=== PATIENT | female | born 1980 | race Caucasian/White ===

== ENCOUNTER 2018-08-24 12:30 | Emergency (ER) | payer OTHER ==
[2018-08-24 12:41] VITALS: BP 127/70; PULSE 80; TEMP 97.9; BMI 29.0
--- NOTE | 2018-08-24 13:21 | PDOC ---
History of Present Illness - General Chief Complaint: Eye Problem Stated Complaint: RT EYE PAIN Time Seen by Provider: 08/24/18 13:08 - History of Present Illness Initial Comments: 08/24/18 13:18 38-year-old female without comorbidities presents for evaluation of right eye irritation times one day without systemic symptoms or changes in vision. She complains of tearing when her eyes open. Past History - Past Medical History Allergies/Adverse Reactions: Allergies Allergy/AdvReac Type Severity Reaction Status Date / Time No Known Allergies Allergy Verified 08/24/18 12:38 Home Medications: Ambulatory Orders Tobramycin 0.3% Ophth Soln [Tobrex Ophthalmic Solution -] 1 drop OD Q4HWA 5 Days #1 bottle 08/24/18 COPD: No - Suicide/Smoking/Psychosocial Hx Smoking History: Current every day smoker Number of Cigarettes Smoked Daily: 10 Information on smoking cessation initiated: No Review of Systems - Review of Systems Constitutional: No: Fever HEENTM: Yes: Tearing. No: Eye Pain, Blurred Vision, Recent change in vision, Double Vision *Physical Exam - Vital Signs Last Vital Signs Temp Pulse Resp BP Pulse Ox 97.9 F 80 18 127/70 97 08/24/18 12:39 08/24/18 12:39 08/24/18 12:39 08/24/18 12:39 08/24/18 12:39 - Physical Exam Comments: 08/24/18 13:21 HEAD: NC/AT EYES: Conjuntiva clear in L eye, R eye is injected, floricine stain shows a small corneal abrasion in the middle of the eye sub cm MS: Full ROM in all joints without edema NEUROLOGIC: No gross sensory or motor deficits, NVID SKIN: Normal color and temperature no lesions or rashes Moderate Sedation - Procedure Monitoring Vital Signs: Procedure Monitoring Vital Signs Temperature 97.9 F 08/24/18 12:39 Pulse Rate 80 08/24/18 12:39 Respiratory Rate 18 08/24/18 12:39 Blood Pressure 127/70 08/24/18 12:39 O2 Sat by Pulse Oximetry (%) 97 08/24/18 12:39 Medical Decision Making - Medical Decision Making 08/24/18 13:23 Tobramycin for corneal abrasion follow-up with ophthalmology *DC/Admit/Observation/Transfer Diagnosis at time of Disposition: Corneal abrasion - Discharge Dispostion Disposition: HOME Condition at time of disposition: Stable Decision to Admit order: No - Prescriptions Prescriptions: Tobramycin 0.3% Ophth Soln [Tobrex Ophthalmic Solution -] 1 drop OD Q4HWA 5 Days #1 bottle - Referrals Referrals: Avel Concepcion [Non Staff, Medical] - Farzad Daly [Non Staff, Medical] - Jeb Saleh [Staff Physician] - Monica Garcia MD [Staff Physician] - Mesfin Matos MD [Non Staff, Medical] - Chencho Suárez MD [Staff Physician] - Huseyin Zuluaga MD [Non Staff, Medical] - Kieran nAderson [Non Staff, Medical] - Anam Andrade [Non Staff, Medical] - Nestor Osorio MD [Non Staff, Medical] - Flor Ye MD [Staff Physician] - Jesus Salgado MD, MD [Non Staff, Medical] - Foster Altman MD [Non Staff, Medical] - Jo Bill MD [Non Staff, Medical] - - Patient Instructions Printed Discharge Instructions: DI for Corneal Abrasion, Corneal Abrasion Additional Instructions: Please use the antibiotics as directed. Return to the emergency room for worsening symptoms. Follow-up with ophthalmology in one to 2 days for further evaluation and treatment options. I've given you list of local ophthalmologists. - Post Discharge Activity
== END 2018-08-24 13:26 | disposition home or self-care (01) ==
LOC: JERFT 12:30
DX: S05.01XA Injury of conjunctiva and corneal abrasion without foreign body, right eye, initial encounter (principal); X58.XXXA Exposure to other specified factors, initial encounter; Y93.89 Activity, other specified; Y92.89 Other specified places as the place of occurrence of the external cause; Y99.8 Other external cause status
CPT/HCPCS: 99281-25

== ENCOUNTER 2019-06-08 06:30 | Emergency (ER) | payer OTHER ==
[2019-06-08 06:51] VITALS: BMI 30.4
[2019-06-08] MEDS ORDERED: SODIUM CHLORIDE 0.9% 500 ML INFUS.BAG IV ONE (07:30)
[2019-06-08] MEDS ORDERED: ACETAMINOPHEN 1000 MG/100 ML VIAL (NON FORMULARY) IVPB ONE ×2 (07:30→12:06)
[2019-06-08] MEDS ORDERED: ONDANSETRON 4 MG/2 ML VIAL IVPUSH ONE (07:30)
--- NOTE | 2019-06-08 07:54 | PDOC ---
Attending Attestation - Resident Resident Name: Adriana Romero - ED Attending Attestation I have performed the following: I have examined & evaluated the patient, The case was reviewed & discussed with the resident, I agree w/resident's findings & plan, Exceptions are as noted - HPI HPI: 06/08/19 10:14 Agree with resident HPI - Physicial Exam PE: 06/08/19 10:14 GENERAL: Awake, alert, and fully oriented, in no acute distress but appears uncomfortable EYES: PERRLA, EOMI, sclera anicteric, conjunctiva clear ENT: Oropharynx clear without exudates. Moist mucosa. NECK: Normal ROM, supple, no lymphadenopathy, JVD, or masses LUNGS: Breath sounds equal, clear to auscultation bilaterally. No wheezes, and no crackles HEART: Regular rate and rhythm, normal S1 and S2, no murmurs, rubs or gallops ABDOMEN: Soft, +midline abd ttp, normoactive bowel sounds. No guarding, no rebound. No masses. No CVAT PELVIC: per Dr. Romero's note EXTREMITIES: Normal range of motion, no edema. No cords, erythema, or tenderness NEUROLOGICAL: Normal speech, cranial nerves intact, equal strength and sensation b/l SKIN: Warm, Dry, normal turgor, no rashes or lesions noted. - Medical Decision Making 06/08/19 10:16 39yo F with no PMH or PSH presents to the ED with 1 day of lower abd pain a/w vomiting and diarrhea Pelvic exam unremarkable with no bleeding, discharge, CMT, ttp No rectal bleeding on exam Ddx: UTI vs colitis vs enteritis vs diverticulitis vs appy +leukocytosis to 15, remaining labs/UA wnl. UPT neg Feels mildly improved with IV tylenol Persistently tender in suprapubic area, also mildly in LLQ -> will obtain CTAP for further evaluation and reassess 06/08/19 12:11 CTAP with colitis. Plan to treat with flagyl and cipro. Pt to f/u within 2-3 days with PMD. She is non toxic appearing, tolerating PO I discussed the physical exam findings, ancillary test results and final diagnoses with the patient. I answered all of the patient's questions. The patient was satisfied with the care received and felt comfortable with the discharge plan and treatment plan. The patient will call their primary care physician within 24 hours to arrange follow-up and will return to the Emergency Department with any new, persistent or worsening symptoms.
--- NOTE | 2019-06-08 07:59 | PDOC ---
History of Present Illness - General Chief Complaint: Vomiting/Diarrhea Stated Complaint: ABD PAIN Time Seen by Provider: 06/08/19 07:21 - History of Present Illness Initial Comments: Gabriela Rendon is a 39yo woman with no past medical history who presents with one day of vomiting, diarrhea, and lower abdominal pain. She states that the symptoms started yesterday. Initially, she was vomiting clear fluid, though the vomiting has since mostly resolved, which she attributes to not eating or drinking anything recently. She also reports watery diarrhea "every time [she] gets up" along with a small amount of red blood on the tissue after the last few episodes. She states that at this point, she has lower abdominal and now low back pain along with the diarrhea. Ms Artis denies any dysuria, hematuria, vaginal bleeding, vaginal discharge , upper abdominal pain, recent travel, sick contacts, change in diet, fever/ chills, or respiratory symptoms. She reports that her LMP was about one week ago , and she does not believe she could be . Past History - Past Medical History Allergies/Adverse Reactions: Allergies Allergy/AdvReac Type Severity Reaction Status Date / Time No Known Allergies Allergy Verified 06/08/19 06:53 Home Medications: Ambulatory Orders Ciprofloxacin [Cipro -] 500 mg PO Q12H 7 Days #14 tablet 06/08/19 metroNIDAZOLE [Metronidazole] 500 mg PO Q8H 7 Days #21 tablet 06/08/19 COPD: No Other medical history: Pt denies - Psycho Social/Smoking Cessation Hx Smoking History: Current every day smoker Number of Cigarettes Smoked Daily: 10 Information on smoking cessation initiated: No Hx Alcohol Use: No Drug/Substance Use Hx: No Review of Systems - Review of Systems Comments:: General: No fevers, no chills, no weight or appetite change, no malaise HEENT: No changes in vision, no changes in hearing, no congestion, no sore throat CV: No chest pain, no palpitations, no LE edema Pulm: No SOB, no cough, no wheezing GI: See HPI : No frequency, no urgency, no dysuria Musc: No back pain, no joint swelling, no recent injury Skin: No rash, no lesions, no erythema Endo: No excessive thirst, no heat/cold intolerance Heme: No unusual bruising or bleeding, no swollen glands Neuro: No syncope, no numbness/tingling, no focal weakness Vasc: No claudication Psych: No recent change in mood, no SI or HI *Physical Exam - Vital Signs Last Vital Signs Temp Pulse Resp BP Pulse Ox 97.8 F 77 18 134/70 98 06/08/19 06:48 06/08/19 06:48 06/08/19 06:48 06/08/19 06:48 06/08/19 06:48 - Physical Exam General: Uncomfortable but in no acute distress HEENT: PERRL, EOMI, MMM, voice normal, normal neck ROM Cards: RRR, no murmur appreciated Pulm: Comfortable on room air, clear to auscultation bilaterally Abd: Soft, nondistended. TTP over lower abdomen, L>R. No rigidity, no guarding. : No CVA tenderness Ext: Atraumatic. No LE edema. ROM intact. WWP Skin: Normal color, no rashes or lesions Neuro: A&Ox3, CN grossly intact, normal speech, motor/sensory grossly intact and symmetric Psych: Mood appropriate to situation ED Treatment Course - LABORATORY CBC & Chemistry Diagram: 06/08/19 08:20 06/08/19 08:20 Medical Decision Making - Medical Decision Making 06/08/19 07:37 Gabriela Rendon is a 39yo woman with no past medical history who presents with one day of vomiting, diarrhea, and lower abdominal pain. - Most likely infectious diarrhea, gastroenteritis. Possible UTI, no CVA tenderness suggesting pyelo. - Denies any vaginal complaints. May need pelvic exam regardless as pt has lower abdominal pain - Small amount of bright red rectal bleeding likely secondary to diarrhea, will check for fissure or hemorrhoids - CBC, CMP, UA, UCx, urine preg - IVF, zofran, acetaminophen 06/08/19 08:03 - Examined by Dr Hackett. Pt reports taking activated charcoal at home for "detox " every other day. May be the cause of her symptoms 06/08/19 09:48 - Pelvic exam completed. Normal external genitalia, no lesions, no bleeding or discharge. No CMT, no adnexal tenderness, os closed - External rectal exam without bleeding, fissure, hemorroids, or other abnormalities - Labs reviewed. Notable for leukocytosis to 15. No other abnormalities appreciated - Pt feeling better, but reports increased discomfort after pelvic. No vomiting or diarrhea while in ED. Will give toradol if test negative, still pending 06/08/19 10:20 - Reexamined pt. Still with LLQ tenderness - Given relatively benign workup, will order CT abd/pelvis with IV contrast for evaluation. Possible diverticulitis given location of pain, report of rectal bleeding, diarrhea 06/08/19 12:04 - CT reviewed in ED. Stranding and bowel wall thickening on right side. Radiology report pending - Pt states she is still in pain, but requesting to leave hospital. Advised to wait for results 06/08/19 12:39 - CT w/ ascending and transverse colitis - Updated pt. Will give antiobitics for one week and GI follow up. Discussed pain control at home with acetaminophen and ibuprofen, recommending liquid and soft diet until symptoms resolve. Discussed with Dr Terry Romero PGY2 Discharge - Discharge Information Problems reviewed: Yes Clinical Impression/Diagnosis: Colitis Condition: Stable Disposition: HOME - Admission No - Additional Discharge Information Prescriptions: Ciprofloxacin [Cipro -] 500 mg PO Q12H 7 Days #14 tablet metroNIDAZOLE [Metronidazole] 500 mg PO Q8H 7 Days #21 tablet - Follow up/Referral Referrals: Adithya Macias MD [Staff Physician] - - Patient Discharge Instructions Patient Printed Discharge Instructions: DI for Colitis Additional Instructions: Discharge Instructions: You were seen in the emergency department for diarrhea and abdominal pain. You were found to have a colon infection called colitis. You have been prescribed antibiotics for your infection. Home Care and Follow Up; - You have been prescribed two antibiotics, ciprofloxacin and metronidazole. - Metronidazole should be taken ever 8 hours for one week (e.g. 7am, 3pm, 11pm) . Do not drink alcohol with this antibiotic. - Ciprofloxacin should be taken every 12 hours for one week (e.g. 7am and 8pm) - You may use over the counter medications as needed for pain at home. 650- 1000mg acetaminophen (Tylenol) or 600mg ibuprofen (Motrin or Advil) can be used every 6-8 hours. If needed for continued pain, these medications may be alternated every 3-4 hours. For example, if you take ibuprofen at 9am, you may take acetaminophen at noon, ibuprofen at 3pm, etc. - You may want to stick to a liquid and soft food diet until your symptoms improve. It is OK if you do not eat as long as you are staying hydrated - Avoid dairy products, spicy or greasy foods, alcohol and caffeine. - You have been given contact information for Dr Macias, a GI specialist. Schedule an appointment with GI within the next 1-2 weeks. - Seek immediate care for worsening symptoms, severe pain, fever to 100.5F or higher, dehydration, or any other medical emergency. - Post Discharge Activity Work/Back to School Note: Back to Work
[2019-06-08] MEDS ORDERED: ACETAMINOPHEN INJECTION 100 ML IVPB ONE ×2 (08:10→12:21)
[2019-06-08] MEDS ORDERED: ONDANSETRON 4 MG/2 ML VIAL ONE (08:11)
[2019-06-08 08:43] LABS: BASO % 0.7 % (0-2.0); EOS % 1.6 % (0-4.5); HEMATOCRIT 44.6 % (32.4-45.2); HEMOGLOBIN 14.9 GM/dL (10.7-15.3); LYMPH % 18.8 % (8-40); MCH 32.1 pg (25.7-33.7); MCHC 33.5 g/dl (32.0-36.0); MEAN CELL VOLUME 96.1 fl (80-96); MEAN PLT VOLUME 9.5 fl (7.5-11.1); MONO % 6.3 % (3.8-10.2); NEUT % 72.6 % (42.8-82.8); PLATELET COUNT 290 K/MM3 (134-434); RBC 4.64 M/mm3 (3.60-5.2); RDW 14.2 % (11.6-15.6); WHITE BLOOD COUNT 15.4 K/mm3 (4.0-10.0)
[2019-06-08 08:52] LABS: EPI CELLS 5.1 /HPF (0-5/HPF); HYALINE CASTS 7 /lpf (0-8); PH,URINE 5.5 (5.0-8.0); URINE APPEARANCE CLEAR; URINE BACTERIA 24.9 /hpf (NEGATIVE); URINE BILIRUBIN NEGATIVE (NEGATIVE); URINE COLOR DK YELLOW; URINE GLUCOSE (UA) NEGATIVE (NEGATIVE); URINE KETONE TRACE (NEGATIVE); URINE LEUK ESTERASE NEGATIVE (NEGATIVE); URINE NITRITE NEGATIVE (NEGATIVE); URINE PROTEIN NEGATIVE (NEGATIVE); URINE UROBILINOGEN 0.2 mg/dL (0.2-1.0); URINE WBC 2 /hpf (0-5)
[2019-06-08 09:13] LABS: ALBUMIN 3.3 g/dl (3.4-5.0); BILIRUBIN,TOTAL 0.4 mg/dL (0.2-1); BLOOD UREA NITROGEN 9.3 mg/dL (7-18); CALCIUM 9.1 mg/dL (8.5-10.1); CREATININE 0.7 mg/dL (0.55-1.3); POTASSIUM 3.9 mmol/L (3.5-5.1); TOT PROT 6.5 g/dl (6.4-8.2)
[2019-06-08 09:37] LABS: URINE RBC 5 /hpf (0-4)
[2019-06-08] MEDS ORDERED: KETOROLAC TROMETHAMINE 30 MG/1 ML VIAL IVPUSH ONE (12:25)
[2019-06-08] MEDS ORDERED: KETOROLAC TROMETHAMINE 30 MG/1 ML VIAL ONE (12:29)
[2019-06-08 12:42] VITALS: BP 137/91; PULSE 70; TEMP 98.2
== END 2019-06-08 13:20 | disposition home or self-care (01) ==
LOC: JER 06:30
PROC: 3E033NZ Introduction of Analgesics, Hypnotics, Sedatives into Peripheral Vein, Percutaneous Approach (ICD-10-PCS; principal; 2019-06-08)
PROC: 3E0333Z Introduction of Anti-inflammatory into Peripheral Vein, Percutaneous Approach (ICD-10-PCS; 2019-06-08)
PROC: 3E033GC Introduction of Other Therapeutic Substance into Peripheral Vein, Percutaneous Approach (ICD-10-PCS; 2019-06-08)
PROC: 3E033NZ Introduction of Analgesics, Hypnotics, Sedatives into Peripheral Vein, Percutaneous Approach (ICD-10-PCS; 2019-06-08)
DX: K52.9 Noninfective gastroenteritis and colitis, unspecified (principal)
CPT/HCPCS: 36415; 74177-TC; 80053; 81003; 83690; 84703; 85025; 87086; 99283-25; J0131

== ENCOUNTER 2020-12-01 18:18 | Emergency (ER) | payer OTHER ==
[2020-12-01 18:34] VITALS: BP 118/69; PULSE 76; TEMP 98; BMI 30.4
[2020-12-01] MEDS ORDERED: KETOROLAC TROMETHAMINE 30 MG/1 ML VIAL IM ONE (19:26)
[2020-12-01] MEDS ORDERED: KETOROLAC TROMETHAMINE 30 MG/1 ML VIAL ONE (19:39)
== END 2020-12-01 21:06 | disposition home or self-care (01) ==
LOC: JERFT 18:18
PROC: 3E0233Z Introduction of Anti-inflammatory into Muscle, Percutaneous Approach (ICD-10-PCS; principal; 2020-12-01)
DX: M79.10 Myalgia, unspecified site (principal)
CPT/HCPCS: 72100-TC-FY; 73130-TC-LT-FY; 73610-TC-LT-FY; 99284-25

== ENCOUNTER 2022-03-13 04:12 | Day surgery (SDC) | payer OTHER ==
[2022-03-09 13:08] VITALS: BMI 35.9
[2022-03-13] MEDS ORDERED: DEXAMETHASONE SOD PHOSPHATE 4 MG/1 ML VIAL ONE (11:15)
[2022-03-13] MEDS ORDERED: KETOROLAC TROMETHAMINE 30 MG/1 ML VIAL ONE (11:15)
[2022-03-13] MEDS ORDERED: LIDOCAINE HCL 2% 100 MG/5 ML DISP.SYRIN ONE (11:15)
[2022-03-13] MEDS ORDERED: ONDANSETRON 4 MG/2 ML VIAL ONE (11:15)
[2022-03-13] MEDS ORDERED: MIDAZOLAM HCL 2 MG/2 ML SINGLE DOSE VIAL ONE ×2 (11:15→11:40)
[2022-03-13] MEDS ORDERED: PROPOFOL 40 ML ONE (11:15)
[2022-03-13] MEDS ORDERED: BUPIVACAINE HCL/PF 0.5% (5MG/ML) 10 ML VIAL ONE (11:27)
[2022-03-13] MEDS ORDERED: ceFAZolin SODIUM 1 GM VIAL IVPB ONE (12:15)
[2022-03-13] MEDS ORDERED: ONDANSETRON 4 MG/2 ML VIAL IVPUSH PRN (12:58)
[2022-03-13] MEDS ORDERED: oxyCODONE HCL 5 MG TABLET PO PRN ×2 (12:58)
[2022-03-13] MEDS ORDERED: LACTATED RINGERS SOLUTION 1,000 ML IV SCH (13:00)
[2022-03-13 14:41] VITALS: RESP 20; TEMP 97.8
[2022-03-13 14:45] VITALS: BP 142/68; PULSE 80
== END 2022-03-13 14:46 | disposition home or self-care (01) ==
LOC: JASU-SURG 04:12
PROVIDERS: ATTEND Obstetrics & Gynecology
PROC: 0UB98ZZ Excision of Uterus, Via Natural or Artificial Opening Endoscopic (ICD-10-PCS; principal; 2022-03-13 12:00)
PROC: 0UDB8ZZ Extraction of Endometrium, Via Natural or Artificial Opening Endoscopic (ICD-10-PCS; 2022-03-13 12:00)
DX: D25.0 Submucous leiomyoma of uterus (principal); N84.0 Polyp of corpus uteri
CPT/HCPCS: 81025; 88305-TC; 94760

== ENCOUNTER 2023-06-19 12:02 | Emergency (ER) | payer OTHER ==
[2023-06-19 12:21] VITALS: RESP 20; BMI 32.6
[2023-06-19] MEDS ORDERED: LACTATED RINGERS SOLUTION 1000 ML INFUS.BAG IV ONE (12:33)
[2023-06-19] MEDS: ALBUTEROL SO4 2.5/IPRATROPIUM 0.5 INH SOL 3 ML VIAL.NEB. NEB SCH ×2 (12:55→13:32)
[2023-06-19] MEDS ORDERED: DEXAMETHASONE SOD PHOSPHATE 10 MG/1 ML VIAL IVPUSH ONE (13:06)
[2023-06-19] MEDS ORDERED: DEXAMETHASONE SOD PHOSPHATE 10 MG/1 ML VIAL ONE (13:27)
[2023-06-19 13:34] LABS: BASO % 0.4 % (0-2.0); EOS % 0.7 % (0-4.5); HEMATOCRIT 43.6 % (32.4-45.2); HEMOGLOBIN 14.3 GM/dL (10.7-15.3); LYMPH % 7.4 % (8-40); MCH 29.1 pg (25.7-33.7); MCHC 32.8 g/dl (32.0-36.0); MEAN CELL VOLUME 88.7 fl (80-96); MEAN PLT VOLUME 9.7 fl (7.5-11.1); MONO % 7.7 % (3.8-10.2); NEUT % 83.8 % (42.8-82.8); PLATELET COUNT 284 10^3/uL (134-434); RBC 4.91 M/mm3 (3.60-5.2); RDW 16.8 % (11.6-15.6); WHITE BLOOD COUNT 17.1 K/mm3 (4.0-10.0)
[2023-06-19 13:44] LABS: INR 1.15 (0.83-1.09); PROTHROMBIN TIME (PATIENT) 13.3 SEC (9.7-13.0)
[2023-06-19 13:47] LABS: ACTIVATED PTT 31.7 SECONDS (25.2-36.5)
[2023-06-19 13:54] LABS: POTASSIUM 5.2 mmol/L (3.5-5.1)
[2023-06-19 13:56] LABS: ALBUMIN 3.1 g/dl (3.4-5.0); CALCIUM 8.9 mg/dL (8.5-10.1)
[2023-06-19 13:59] LABS: CREATININE 0.9 mg/dL (0.55-1.3)
[2023-06-19 14:01] LABS: BILIRUBIN,TOTAL 0.6 mg/dL (0.2-1); TOT PROT 7.2 g/dl (6.4-8.2)
[2023-06-19 15:59] VITALS: BP 129/78; PULSE 103; TEMP 99.7
== END 2023-06-19 16:35 | disposition home or self-care (01) ==
LOC: JER 12:02
PROC: 3E033GC Introduction of Other Therapeutic Substance into Peripheral Vein, Percutaneous Approach (ICD-10-PCS; principal; 2023-06-19)
PROC: 3E0F7GC Introduction of Other Therapeutic Substance into Respiratory Tract, Via Natural or Artificial Opening (ICD-10-PCS; 2023-06-19)
DX: J06.9 Acute upper respiratory infection, unspecified (principal); J10.1 Influenza due to other identified influenza virus with other respiratory manifestations; R05.9 Cough, unspecified; R06.02 Shortness of breath; R09.02 Hypoxemia; R07.89 Other chest pain; R06.2 Wheezing; Z20.822 Contact with and (suspected) exposure to COVID-19
CPT/HCPCS: 0241U-QW; 36415; 71046-TC-FY; 80053; 84484; 84703; 85025; 85610; 85730; 93005; 93010; 99285-25; J1100

== ENCOUNTER 2023-10-19 21:57 | Emergency (ER) | payer OTHER ==
[2023-10-19 22:03] VITALS: BP 143/84; PULSE 92; RESP 18; TEMP 98.3; BMI 34.9
[2023-10-19 23:04] LABS: BASO % 0.9 % (0-2.0); EOS % 1.2 % (0-4.5); HEMATOCRIT 40.9 % (32.4-45.2); HEMOGLOBIN 13.8 GM/dL (10.7-15.3); LYMPH % 30.2 % (8-40); MCH 28.9 pg (25.7-33.7); MCHC 33.7 g/dl (32.0-36.0); MEAN CELL VOLUME 85.7 fl (80-96); MEAN PLT VOLUME 9.6 fl (7.5-11.1); MONO % 5.6 % (3.8-10.2); NEUT % 62.1 % (42.8-82.8); PLATELET COUNT 302 10^3/uL (134-434); RBC 4.77 M/mm3 (3.60-5.2); RDW 17.6 % (11.6-15.6); WHITE BLOOD COUNT 16.7 K/mm3 (4.0-10.0)
[2023-10-19 23:21] LABS: POTASSIUM 3.8 mmol/L (3.5-5.1)
[2023-10-19 23:23] LABS: CALCIUM 8.7 mg/dL (8.5-10.1)
[2023-10-19 23:24] LABS: ALBUMIN 3.6 g/dl (3.4-5.0)
[2023-10-19] MEDS ORDERED: PIPERACILLIN/TAZOB 3.375 GM 3.375 GM in DEXTROSE 5%-WATER - 50 ML IVPB ONE (23:26)
[2023-10-19 23:27] LABS: CREATININE 0.9 mg/dL (0.55-1.3)
[2023-10-19 23:29] LABS: BILIRUBIN,TOTAL 0.2 mg/dL (0.2-1)
== END 2023-10-20 00:53 | disposition left against medical advice (07) ==
LOC: JER 21:57 → JERFT 21:57 → JER 10-20 00:53
DX: S91.352A Open bite, left foot, initial encounter (principal); M79.672 Pain in left foot; W55.01XA Bitten by cat, initial encounter
CPT/HCPCS: 36415; 73630-TC-LT; 80053; 84703; 85025; 85651; 86140; 99284-25

== ENCOUNTER 2023-10-20 02:11 | Observation (INO) | payer OTHER ==
[2023-10-20 02:21] VITALS: RESP 18; BMI 34.9
[2023-10-20] MEDS ORDERED: PIPERACILLIN/TAZOB 3.375 GM 3.375 GM/50 ML BAG IVPB ONE (04:10)
[2023-10-20] MEDS: PIPERACILLIN/TAZOB 3.375 GM 3.375 GM in DEXTROSE 5%-WATER - 50 ML IVPB ONE (04:10)
[2023-10-20] MEDS ORDERED: ACETAMINOPHEN INJECTION 100 ML IVPB ONE (04:11)
[2023-10-20] MEDS: ACETAMINOPHEN 1000 MG/100 ML BAG IVPB ONE (05:00)
[2023-10-20 06:37] LABS: BASO % 0.9 % (0-2.0); EOS % 1.9 % (0-4.5); HEMATOCRIT 38.3 % (32.4-45.2); HEMOGLOBIN 12.5 GM/dL (10.7-15.3); LYMPH % 33.9 % (8-40); MCH 28.5 pg (25.7-33.7); MCHC 32.6 g/dl (32.0-36.0); MEAN CELL VOLUME 87.3 fl (80-96); MEAN PLT VOLUME 9.6 fl (7.5-11.1); MONO % 6.8 % (3.8-10.2); NEUT % 56.5 % (42.8-82.8); PLATELET COUNT 277 10^3/uL (134-434); RBC 4.39 M/mm3 (3.60-5.2); RDW 17.8 % (11.6-15.6); WHITE BLOOD COUNT 12.4 K/mm3 (4.0-10.0)
[2023-10-20 06:47] LABS: POTASSIUM 3.9 mmol/L (3.5-5.1)
[2023-10-20 06:50] LABS: ALBUMIN 3.2 g/dl (3.4-5.0); BLOOD UREA NITROGEN 14.2 mg/dL (7-18); CALCIUM 8.8 mg/dL (8.5-10.1)
[2023-10-20 06:53] LABS: CREATININE 0.9 mg/dL (0.55-1.3); PHOSPHOROUS 3.5 mg/dL (2.5-4.9)
[2023-10-20 06:55] LABS: BILIRUBIN,TOTAL 0.3 mg/dL (0.2-1); TOT PROT 6.4 g/dl (6.4-8.2)
[2023-10-20] MEDS: ENOXAPARIN NA (PORCINE) 40 MG/0.4 ML DISP.SYRIN SQ SCH (09:10)
[2023-10-20] MEDS ORDERED: ACETAMINOPHEN 325 MG TABLET (FP) PO PRN (09:59)
[2023-10-21 08:59] LABS: BASO % 1.3 % (0-2.0); EOS % 3.5 % (0-4.5); HEMATOCRIT 39.5 % (32.4-45.2); MCH 28.6 pg (25.7-33.7); MCHC 32.8 g/dl (32.0-36.0); MEAN PLT VOLUME 9.6 fl (7.5-11.1); MONO % 7.3 % (3.8-10.2); NEUT % 44.9 % (42.8-82.8); PLATELET COUNT 282 10^3/uL (134-434); RBC 4.54 M/mm3 (3.60-5.2); RDW 17.3 % (11.6-15.6); WHITE BLOOD COUNT 8.3 K/mm3 (4.0-10.0)
[2023-10-21 09:23] LABS: POTASSIUM 4.4 mmol/L (3.5-5.1)
[2023-10-21 09:27] LABS: ALBUMIN 2.9 g/dl (3.4-5.0); BLOOD UREA NITROGEN 13.6 mg/dL (7-18); CALCIUM 8.4 mg/dL (8.5-10.1)
[2023-10-21 09:30] LABS: CREATININE 0.6 mg/dL (0.55-1.3)
[2023-10-21 09:32] LABS: BILIRUBIN,TOTAL 0.3 mg/dL (0.2-1)
[2023-10-22 08:35] LABS: HEMATOCRIT 40.6 % (32.4-45.2); HEMOGLOBIN 13.6 GM/dL (10.7-15.3); LYMPH % 40.5 % (8-40); MCH 28.9 pg (25.7-33.7); MCHC 33.3 g/dl (32.0-36.0); MEAN CELL VOLUME 86.8 fl (80-96); MEAN PLT VOLUME 9.6 fl (7.5-11.1); MONO % 7.5 % (3.8-10.2); PLATELET COUNT 276 10^3/uL (134-434); RBC 4.68 M/mm3 (3.60-5.2); WHITE BLOOD COUNT 9.5 K/mm3 (4.0-10.0)
[2023-10-22 11:25] VITALS: BP 150/87; PULSE 61; TEMP 98.1
[2023-10-22] MEDS ORDERED: IBUPROFEN 600 MG TABLET (FP) PO PRN ×2 (11:41→18:00)
[2023-10-22] MEDS: IBUPROFEN 600 MG TABLET (FP) PO ONE (14:00)
== END 2023-10-22 18:18 | disposition home or self-care (01) ==
LOC: JER 02:11 → JERBED 03:02 → J6S 06:53
PROVIDERS: ADMIT Internal Medicine; ATTEND Internal Medicine
PROC: 3E033NZ Introduction of Analgesics, Hypnotics, Sedatives into Peripheral Vein, Percutaneous Approach (ICD-10-PCS; principal; 2023-10-20)
DX: S91.332A Puncture wound without foreign body, left foot, initial encounter (principal); W55.01XA Bitten by cat, initial encounter; Y93.89 Activity, other specified; Y92.009 Unspecified place in unspecified non-institutional (private) residence as the place of occurrence of the external cause; L73.2 Hidradenitis suppurativa; R73.03 Prediabetes
CPT/HCPCS: 36415; 73723-LT; 80053; 83735; 84100; 85025; 86140; 93005; 93010; 97116-GP; 97161-GP; 99285-25; G0378; J0131

== ENCOUNTER 2024-07-29 18:24 | Observation (INO) | payer OTHER ==
[2024-07-29 20:40] LABS: EOS % 1.2 % (0-4.5); HEMATOCRIT 45.3 % (32.4-45.2); HEMOGLOBIN 14.5 GM/dL (10.7-15.3); LYMPH % 30.4 % (8-40); MCH 29.8 pg (25.7-33.7); MEAN CELL VOLUME 93.2 fl (80-96); MEAN PLT VOLUME 9.7 fl (7.5-11.1); MONO % 5.7 % (3.8-10.2); NEUT % 61.7 % (42.8-82.8); PLATELET COUNT 312 10^3/uL (134-434); RBC 4.86 M/mm3 (3.60-5.2); RDW 15.4 % (11.6-15.6); WHITE BLOOD COUNT 16.9 K/mm3 (4.0-10.0)
[2024-07-29 20:52] LABS: CHLORIDE 106 mmol/L (98-107); SODIUM 138 mmol/L (136-145)
[2024-07-29 20:54] LABS: CALCIUM 9.2 mg/dL (8.5-10.1)
[2024-07-29 20:55] LABS: ALBUMIN 3.6 g/dl (3.4-5.0); BLOOD UREA NITROGEN 21.4 mg/dL (7-18); CO2 25 mmol/L (21-32); GLUCOSE,RANDOM 88 mg/dL (74-106)
[2024-07-29 20:58] LABS: CREATININE 0.9 mg/dL (0.55-1.3); SGOT/AST 48 U/L (15-37); SGPT/ALT 20 U/L (13-61)
[2024-07-29 21:00] LABS: BILIRUBIN,TOTAL 0.5 mg/dL (0.2-1); TOT PROT 7.6 g/dl (6.4-8.2)
[2024-07-29 21:01] LABS: ALK PHOS 127 U/L (45-117); ANION GAP 7 mmol/L (4-13); POTASSIUM 6.4 mmol/L (3.5-5.1)
[2024-07-29] MEDS ORDERED: ACETAMINOPHEN INJECTION 100 ML ONE (21:28)
[2024-07-29] MEDS ORDERED: AMPICILLIN NA/SULBACTAM NA 3 GM/100 ML BAG IVPB ONE (21:28)
[2024-07-29] MEDS ORDERED: DIPHTH,PERTUSS(ACELL),TET 0.5 ML DISP.SYRIN IM ONE (21:29)
[2024-07-29] MEDS: DIPHTH,PERTUSS(ACELL),TET 0.5 ML DISP.SYRIN IM ONE (21:54)
[2024-07-29 22:02] LABS: HIV INTERPRETATION NEGATIVE (NEGATIVE)
[2024-07-29] MEDS: ACETAMINOPHEN 1000 MG/100 ML BAG IVPB ONE (22:13)
[2024-07-29] MEDS: AMPICILLIN NA/SULBACTAM NA 3 GM in SODIUM CHLORIDE 100 ML IVPB ONE (22:13)
[2024-07-29 23:16] LABS: ERYTHROCYTE SEDIMENTATION RATE 16 mm/hr (0-20)
[2024-07-30 00:10] VITALS: BMI 35.5
[2024-07-30] MEDS: AMPICILLIN NA/SULBACTAM NA 1.5 GM in SODIUM CHLORIDE 100 ML IVPB SCH (03:39)
[2024-07-30] MEDS: ACETAMINOPHEN 1000 MG/100 ML BAG IVPB PRN (05:59)
[2024-07-30 09:17] LABS: HEMATOCRIT 42.3 % (32.4-45.2); HEMOGLOBIN 13.6 GM/dL (10.7-15.3); MCHC 32.3 g/dl (32.0-36.0); MEAN PLT VOLUME 9.9 fl (7.5-11.1); PLATELET COUNT 261 10^3/uL (134-434); RBC 4.55 M/mm3 (3.60-5.2); RDW 15.7 % (11.6-15.6); WHITE BLOOD COUNT 11.7 K/mm3 (4.0-10.0)
[2024-07-30 09:41] LABS: CALCIUM 8.5 mg/dL (8.5-10.1)
[2024-07-30 09:42] LABS: ALBUMIN 2.9 g/dl (3.4-5.0); BLOOD UREA NITROGEN 15.5 mg/dL (7-18)
[2024-07-30 09:45] LABS: CREATININE 0.7 mg/dL (0.55-1.3)
[2024-07-30 09:46] LABS: BILIRUBIN,TOTAL 0.5 mg/dL (0.2-1); TOT PROT 6.1 g/dl (6.4-8.2)
[2024-07-30] MEDS: ENOXAPARIN NA (PORCINE) 40 MG/0.4 ML DISP.SYRIN SQ SCH (10:06)
[2024-07-30] MEDS: traMADol HCL 50 MG TABLET PO PRN (16:06)
[2024-07-31 12:46] LABS: HEMATOCRIT 41.5 % (32.4-45.2); HEMOGLOBIN 13.9 GM/dL (10.7-15.3); MCH 30.8 pg (25.7-33.7); MCHC 33.6 g/dl (32.0-36.0); MEAN CELL VOLUME 91.7 fl (80-96); MEAN PLT VOLUME 9.9 fl (7.5-11.1); PLATELET COUNT 255 10^3/uL (134-434); RBC 4.52 M/mm3 (3.60-5.2); RDW 15.6 % (11.6-15.6); WHITE BLOOD COUNT 10.1 K/mm3 (4.0-10.0)
[2024-07-31 13:20] LABS: CALCIUM 8.6 mg/dL (8.5-10.1)
[2024-07-31 13:21] LABS: ALBUMIN 3.1 g/dl (3.4-5.0)
[2024-07-31 13:24] LABS: CREATININE 0.7 mg/dL (0.55-1.3)
[2024-07-31 13:26] LABS: BILIRUBIN,TOTAL 0.4 mg/dL (0.2-1); TOT PROT 6.3 g/dl (6.4-8.2)
[2024-07-31] MEDS: SODIUM CHLORIDE 1,000 ML IV SCH (13:36)
[2024-08-01] MEDS: traMADol HCL 50 MG TABLET PO PRN (18:33)
[2024-08-02 10:27] LABS: POTASSIUM 4.3 mmol/L (3.5-5.1)
[2024-08-02 10:29] LABS: ALBUMIN 2.6 g/dl (3.4-5.0); BLOOD UREA NITROGEN 12.4 mg/dL (7-18); CALCIUM 8.6 mg/dL (8.5-10.1)
[2024-08-02 10:32] LABS: CREATININE 0.8 mg/dL (0.55-1.3)
[2024-08-02 10:34] LABS: BILIRUBIN,TOTAL 0.2 mg/dL (0.2-1); TOT PROT 5.6 g/dl (6.4-8.2)
[2024-08-02 10:52] LABS: HEMATOCRIT 41.4 % (32.4-45.2); HEMOGLOBIN 13.4 GM/dL (10.7-15.3); MCH 30.3 pg (25.7-33.7); MCHC 32.4 g/dl (32.0-36.0); MEAN CELL VOLUME 93.7 fl (80-96); MEAN PLT VOLUME 9.9 fl (7.5-11.1); PLATELET COUNT 242 10^3/uL (134-434); RBC 4.42 M/mm3 (3.60-5.2); RDW 15.4 % (11.6-15.6); WHITE BLOOD COUNT 9.8 K/mm3 (4.0-10.0)
[2024-08-02] MEDS: AMPICILLIN NA/SULBACTAM NA 1.5 GM in SODIUM CHLORIDE 100 ML IVPB SCH (11:29)
[2024-08-02 12:34] VITALS: TEMP 97.3
[2024-08-02 16:54] VITALS: BP 145/81; PULSE 54; RESP 18
== END 2024-08-02 18:25 | disposition home or self-care (01) ==
LOC: JER 18:24 → JERBED 21:33 → J7W 23:22
PROVIDERS: ADMIT Student in an Organized Health Care Education/Training Program; ATTEND Physician Assistant
PROC: 3E033NZ Introduction of Analgesics, Hypnotics, Sedatives into Peripheral Vein, Percutaneous Approach (ICD-10-PCS; principal; 2024-07-29)
PROC: 3E03329 Introduction of Other Anti-infective into Peripheral Vein, Percutaneous Approach (ICD-10-PCS; 2024-07-29)
PROC: 3E0234Z Introduction of Serum, Toxoid and Vaccine into Muscle, Percutaneous Approach (ICD-10-PCS; 2024-07-29)
PROC: 3E0337Z Introduction of Electrolytic and Water Balance Substance into Peripheral Vein, Percutaneous Approach (ICD-10-PCS; 2024-07-29)
DX: L03.116 Cellulitis of left lower limb (principal); W55.03XA Scratched by cat, initial encounter; Y93.89 Activity, other specified; Y92.89 Other specified places as the place of occurrence of the external cause; D72.829 Elevated white blood cell count, unspecified; R73.03 Prediabetes; L73.2 Hidradenitis suppurativa; F17.210 Nicotine dependence, cigarettes, uncomplicated; Z23 Encounter for immunization
CPT/HCPCS: 36415; 73701-TC-RT; 76882-TC-LT; 80053; 84132; 84703; 85025; 85027; 85651; 86140; 86803; 86850; 86900; 86901; 87040; 87070; 87186; 87205; 87389; 90715; 93005; 93010; 99285-25; G0378; J0131

== ENCOUNTER 2024-08-16 15:09 | Observation (INO) | payer OTHER ==
[2024-08-16] MEDS ORDERED: ONDANSETRON 4 MG/2 ML VIAL ONE (16:24)
[2024-08-16] MEDS ORDERED: FAMOTIDINE 20 MG/50 ML IVPB 20 MG/50 ML MG IVPB ONE (16:25)
[2024-08-16] MEDS: SODIUM CHLORIDE 0.9% 500 ML INFUS.BAG IV ONE (16:39)
[2024-08-16] MEDS: FAMOTIDINE 20 MG/50 ML IVPB 20 MG/50 ML MG IVPB ONE (16:39)
[2024-08-16] MEDS: ONDANSETRON 4 MG/2 ML VIAL IVPUSH ONE (16:40)
[2024-08-16 16:47] LABS: BASO % 0.9 % (0-2.0); EOS % 2.5 % (0-4.5); HEMATOCRIT 47.4 % (32.4-45.2); HEMOGLOBIN 15.7 GM/dL (10.7-15.3); LYMPH % 27.4 % (8-40); MCH 30.4 pg (25.7-33.7); MCHC 33.1 g/dl (32.0-36.0); MEAN CELL VOLUME 91.9 fl (80-96); MEAN PLT VOLUME 9.5 fl (7.5-11.1); MONO % 5.5 % (3.8-10.2); NEUT % 63.7 % (42.8-82.8); PLATELET COUNT 305 10^3/uL (134-434); RBC 5.16 M/mm3 (3.60-5.2); RDW 15.1 % (11.6-15.6); WHITE BLOOD COUNT 15.2 K/mm3 (4.0-10.0)
[2024-08-16 16:50] LABS: EPI CELLS >36 /uL (0-25.1); HYALINE CASTS 3 /uL (0-3.1); URINE APPEARANCE CLEAR; URINE BACTERIA 352 /uL (0-1359); URINE BILIRUBIN NEGATIVE (NEGATIVE); URINE COLOR YELLOW; URINE GLUCOSE (UA) NEGATIVE (NEGATIVE); URINE KETONE TRACE (NEGATIVE); URINE LEUK ESTERASE NEGATIVE (NEGATIVE); URINE NITRITE NEGATIVE (NEGATIVE); URINE PROTEIN 2+ (NEGATIVE); URINE RBC 63 /uL (0-23.9); URINE WBC 19 /uL (0-25.8)
[2024-08-16 17:10] LABS: POTASSIUM 4.4 mmol/L (3.5-5.1)
[2024-08-16 17:12] LABS: CALCIUM 9.3 mg/dL (8.5-10.1)
[2024-08-16 17:13] LABS: ALBUMIN 3.6 g/dl (3.4-5.0)
[2024-08-16 17:16] LABS: CREATININE 0.8 mg/dL (0.55-1.3)
[2024-08-16 17:17] LABS: BILIRUBIN,TOTAL 0.4 mg/dL (0.2-1)
[2024-08-16 17:18] LABS: TOT PROT 7.4 g/dl (6.4-8.2)
[2024-08-16] MEDS ORDERED: ACETAMINOPHEN INJECTION 100 ML ONE ×2 (17:43→23:12)
[2024-08-16] MEDS: ACETAMINOPHEN 1000 MG/100 ML BAG IVPB ONE ×2 (17:49→23:16)
[2024-08-17] MEDS: ACETAMINOPHEN 1000 MG/100 ML BAG IVPB PRN (03:24)
[2024-08-17 08:01] LABS: HEMOGLOBIN 13.9 GM/dL (10.7-15.3); MCH 30.9 pg (25.7-33.7); MCHC 33.8 g/dl (32.0-36.0); MEAN CELL VOLUME 91.3 fl (80-96); MEAN PLT VOLUME 9.8 fl (7.5-11.1); PLATELET COUNT 250 10^3/uL (134-434); RBC 4.49 M/mm3 (3.60-5.2); RDW 15.2 % (11.6-15.6); WHITE BLOOD COUNT 11.4 K/mm3 (4.0-10.0)
[2024-08-17 08:22] LABS: POTASSIUM 3.6 mmol/L (3.5-5.1)
[2024-08-17 08:33] LABS: BLOOD UREA NITROGEN 11.5 mg/dL (7-18); CALCIUM 8.8 mg/dL (8.5-10.1); MAGNESIUM 1.9 mg/dL (1.8-2.4)
[2024-08-17 08:36] LABS: CREATININE 0.7 mg/dL (0.55-1.3); PHOSPHOROUS 4.2 mg/dL (2.5-4.9)
[2024-08-17 08:38] LABS: BILIRUBIN,TOTAL 0.4 mg/dL (0.2-1)
[2024-08-17 15:51] VITALS: BMI 35.6
[2024-08-18 09:52] VITALS: RESP 18
[2024-08-18 11:33] LABS: HEMATOCRIT 43.3 % (32.4-45.2); HEMOGLOBIN 14.5 GM/dL (10.7-15.3); MCH 30.5 pg (25.7-33.7); MCHC 33.5 g/dl (32.0-36.0); MEAN CELL VOLUME 91.2 fl (80-96); PLATELET COUNT 265 10^3/uL (134-434); RBC 4.75 M/mm3 (3.60-5.2); RDW 14.8 % (11.6-15.6)
[2024-08-18 11:52] LABS: POTASSIUM 3.8 mmol/L (3.5-5.1)
[2024-08-18 11:53] LABS: CALCIUM 9.1 mg/dL (8.5-10.1)
[2024-08-18 11:54] LABS: ALBUMIN 2.9 g/dl (3.4-5.0); BLOOD UREA NITROGEN 10.2 mg/dL (7-18)
[2024-08-18 11:57] LABS: CREATININE 0.8 mg/dL (0.55-1.3)
[2024-08-18 11:59] LABS: BILIRUBIN,TOTAL 0.4 mg/dL (0.2-1); TOT PROT 5.9 g/dl (6.4-8.2)
[2024-08-18 12:03] LABS: PHOSPHOROUS 3.4 mg/dL (2.5-4.9)
[2024-08-18] MEDS: ACETAMINOPHEN 325 MG TABLET (FP) PO PRN (13:05)
[2024-08-19 08:39] LABS: HEMATOCRIT 41.7 % (32.4-45.2); HEMOGLOBIN 13.4 GM/dL (10.7-15.3); MCH 29.8 pg (25.7-33.7); MCHC 32.2 g/dl (32.0-36.0); MEAN CELL VOLUME 92.7 fl (80-96); PLATELET COUNT 253 10^3/uL (134-434); RDW 14.6 % (11.6-15.6); WHITE BLOOD COUNT 12.4 K/mm3 (4.0-10.0)
[2024-08-19 09:00] LABS: POTASSIUM 3.7 mmol/L (3.5-5.1)
[2024-08-19 09:02] LABS: CALCIUM 8.4 mg/dL (8.5-10.1)
[2024-08-19 09:03] LABS: ALBUMIN 2.9 g/dl (3.4-5.0); BLOOD UREA NITROGEN 16.2 mg/dL (7-18); MAGNESIUM 1.9 mg/dL (1.8-2.4)
[2024-08-19 09:05] LABS: CREATININE 0.7 mg/dL (0.55-1.3)
[2024-08-19 09:07] LABS: BILIRUBIN,TOTAL 0.3 mg/dL (0.2-1); TOT PROT 5.6 g/dl (6.4-8.2)
[2024-08-19 11:25] VITALS: BP 138/81; PULSE 52; TEMP 97.9
== END 2024-08-19 11:29 | disposition home or self-care (01) ==
LOC: JER 15:09 → INTOOBSV 22:08 → JERBED 22:08 → UNDOADMOB 22:08 → JERBED 08-17 02:54 → J7W 08-17 02:54 → JERBED 08-17 14:30
PROVIDERS: ADMIT Internal Medicine
PROC: 3E033GC Introduction of Other Therapeutic Substance into Peripheral Vein, Percutaneous Approach (ICD-10-PCS; principal; 2024-08-17)
PROC: 3E033NZ Introduction of Analgesics, Hypnotics, Sedatives into Peripheral Vein, Percutaneous Approach (ICD-10-PCS; 2024-08-17)
PROC: 3E033GC Introduction of Other Therapeutic Substance into Peripheral Vein, Percutaneous Approach (ICD-10-PCS; 2024-08-17)
PROC: 3E0337Z Introduction of Electrolytic and Water Balance Substance into Peripheral Vein, Percutaneous Approach (ICD-10-PCS; 2024-08-17)
DX: A09 Infectious gastroenteritis and colitis, unspecified (principal); R73.03 Prediabetes; D72.829 Elevated white blood cell count, unspecified; L73.2 Hidradenitis suppurativa; F17.210 Nicotine dependence, cigarettes, uncomplicated
CPT/HCPCS: 36415; 74177-TC; 76830-TC; 80053; 81003; 83690; 83735; 83986; 83993; 84100; 84702; 84703; 84999; 85025; 85027; 87045; 87046; 87086; 87186; 87324; 87449; 87493; 96365; 96375; 96376; 99285-25; G0378; J0131; Q9967

== ENCOUNTER 2024-11-13 22:44 | Emergency (ER) | payer OTHER ==
[2024-11-13 22:52] VITALS: TEMP 98.4; BMI 37.4
[2024-11-13] MEDS ORDERED: ACETAMINOPHEN 325 MG TABLET (FP) ONE (23:57)
[2024-11-13] MEDS ORDERED: BACITRACIN ZINC 15 GM TUBE TOPICAL OINTMENT ONE (23:59)
[2024-11-14] MEDS: ACETAMINOPHEN 325 MG TABLET (FP) PO ONE (00:12)
[2024-11-14] MEDS: metroNIDAZOLE 500 MG TABLET PO ONE (00:57)
[2024-11-14] MEDS: DOXYCYCLINE HYCLATE 100 MG CAPSULE PO ONE (00:57)
[2024-11-14 01:04] VITALS: BP 122/75; PULSE 88; RESP 18
== END 2024-11-14 01:02 | disposition home or self-care (01) ==
LOC: JER 22:44
DX: S81.851A Open bite, right lower leg, initial encounter (principal); W55.01XA Bitten by cat, initial encounter
CPT/HCPCS: 99283-25

== ENCOUNTER 2024-11-19 16:49 | Emergency (ER) | payer OTHER ==
[2024-11-19 16:56] VITALS: RESP 18; TEMP 98; BMI 34.9
[2024-11-19] MEDS ORDERED: IBUPROFEN 600 MG TABLET (FP) PO ONE (18:21)
[2024-11-19] MEDS: IBUPROFEN 600 MG TABLET (FP) PO ONE (18:23)
[2024-11-19 18:39] LABS: HEMATOCRIT 42.2 % (34.1-44.9); HEMOGLOBIN 13.9 g/dL (11.2-15.7); MCHC 32.9 g/dl (32.2-35.5); MEAN CELL VOLUME 92.3 fl (79.4-94.8); MEAN PLT VOLUME 11.8 fl (9.4-12.3); PLATELET COUNT 286 x10^3/uL (182-369); RDW 14.9 % (12.2-17.1)
[2024-11-19 19:00] LABS: POTASSIUM 5.6 mmol/L (3.5-5.1)
[2024-11-19 19:02] LABS: CALCIUM 8.9 mg/dL (8.5-10.1)
[2024-11-19 19:03] LABS: ALBUMIN 3.3 g/dl (3.4-5.0)
[2024-11-19 19:06] LABS: CREATININE 0.9 mg/dL (0.55-1.3)
[2024-11-19 19:07] LABS: BILIRUBIN,TOTAL 0.3 mg/dL (0.2-1); TOT PROT 6.6 g/dl (6.4-8.2)
[2024-11-19] MEDS ORDERED: DALBAVANCIN HCL 500 MG VIAL (RESTRICTED TO ID ONLY) IVPB ONE (19:44)
[2024-11-19 19:55] LABS: HCV DIAGNOSTIC IN-HOUSE W/RFLX NON-REACTIVE (NONREACTIVE)
[2024-11-19 19:56] LABS: HIV INTERPRETATION NEGATIVE (NEGATIVE)
[2024-11-19] MEDS: DALBAVANCIN HCL 1,500 MG in DEXTROSE 5%-WATER - 500 ML IVPB ONE (20:00)
[2024-11-19 22:07] VITALS: BP 128/78; PULSE 76
== END 2024-11-19 22:07 | disposition home or self-care (01) ==
LOC: JER 16:49
DX: S60.511A Abrasion of right hand, initial encounter (principal); S60.512A Abrasion of left hand, initial encounter; S80.811A Abrasion, right lower leg, initial encounter; S80.812A Abrasion, left lower leg, initial encounter; W55.01XA Bitten by cat, initial encounter
CPT/HCPCS: 36415; 80053; 85027; 86803; 87389; 99284-25; J0875